=== PATIENT | female | born 1955 | race Caucasian/White ===

== ENCOUNTER → 2018-06-06 | Outpatient (CLI) | payer OTHER | LOC: HYPER 06:31 | DX: T81.49XA Infection following a procedure, other surgical site, initial encounter (principal); L97.312 Non-pressure chronic ulcer of right ankle with fat layer exposed; M85.88 Other specified disorders of bone density and structure, other site; F32.9 Major depressive disorder, single episode, unspecified; Y83.8 Other surgical procedures as the cause of abnormal reaction of the patient, or of later complication, without mention of misadventure at the time of the procedure ==

== ENCOUNTER → 2018-06-25 | Outpatient (CLI) | payer OTHER | LOC: HYPER 07:06 | DX: T81.49XD Infection following a procedure, other surgical site, subsequent encounter (principal); L97.312 Non-pressure chronic ulcer of right ankle with fat layer exposed; M85.88 Other specified disorders of bone density and structure, other site; F32.9 Major depressive disorder, single episode, unspecified; Y83.8 Other surgical procedures as the cause of abnormal reaction of the patient, or of later complication, without mention of misadventure at the time of the procedure ==

== ENCOUNTER → 2018-07-09 | Outpatient (CLI) | payer OTHER | LOC: HYPER 07:01 | DX: T81.49XD Infection following a procedure, other surgical site, subsequent encounter (principal); L97.312 Non-pressure chronic ulcer of right ankle with fat layer exposed; M85.80 Other specified disorders of bone density and structure, unspecified site; F32.9 Major depressive disorder, single episode, unspecified; Y83.8 Other surgical procedures as the cause of abnormal reaction of the patient, or of later complication, without mention of misadventure at the time of the procedure ==

== ENCOUNTER → 2018-07-23 | Outpatient (CLI) | payer OTHER | LOC: HYPER 06:51 | DX: T81.49XD Infection following a procedure, other surgical site, subsequent encounter (principal); L97.312 Non-pressure chronic ulcer of right ankle with fat layer exposed; M85.80 Other specified disorders of bone density and structure, unspecified site; F32.9 Major depressive disorder, single episode, unspecified; Y83.8 Other surgical procedures as the cause of abnormal reaction of the patient, or of later complication, without mention of misadventure at the time of the procedure ==

== ENCOUNTER → 2018-08-08 | Outpatient (CLI) | payer OTHER | LOC: HYPER 06:53 | DX: T81.49XD Infection following a procedure, other surgical site, subsequent encounter (principal); L97.312 Non-pressure chronic ulcer of right ankle with fat layer exposed; M85.80 Other specified disorders of bone density and structure, unspecified site; F32.9 Major depressive disorder, single episode, unspecified; Y83.8 Other surgical procedures as the cause of abnormal reaction of the patient, or of later complication, without mention of misadventure at the time of the procedure ==

== ENCOUNTER → 2018-09-26 | Outpatient (CLI) | payer OTHER | LOC: HYPER 08-23 08:57 | DX: T81.49XD Infection following a procedure, other surgical site, subsequent encounter (principal); L97.312 Non-pressure chronic ulcer of right ankle with fat layer exposed; M85.80 Other specified disorders of bone density and structure, unspecified site; F32.9 Major depressive disorder, single episode, unspecified; Y83.8 Other surgical procedures as the cause of abnormal reaction of the patient, or of later complication, without mention of misadventure at the time of the procedure ==

== ENCOUNTER → 2018-10-10 | Outpatient (CLI) | payer OTHER | LOC: HYPER 06:26 | DX: T81.49XD Infection following a procedure, other surgical site, subsequent encounter (principal); L97.312 Non-pressure chronic ulcer of right ankle with fat layer exposed; M85.80 Other specified disorders of bone density and structure, unspecified site; F32.9 Major depressive disorder, single episode, unspecified; Y83.8 Other surgical procedures as the cause of abnormal reaction of the patient, or of later complication, without mention of misadventure at the time of the procedure ==

== ENCOUNTER → 2018-10-25 | Outpatient (CLI) | payer OTHER | LOC: HYPER 06:58 | DX: T81.49XD Infection following a procedure, other surgical site, subsequent encounter (principal); L97.312 Non-pressure chronic ulcer of right ankle with fat layer exposed; M85.80 Other specified disorders of bone density and structure, unspecified site; F32.9 Major depressive disorder, single episode, unspecified; Y83.8 Other surgical procedures as the cause of abnormal reaction of the patient, or of later complication, without mention of misadventure at the time of the procedure ==